=== PATIENT | female | born 1990 | race Caucasian/White ===

== ENCOUNTER 2023-06-05 08:05 | Outpatient (REF) | payer OTHER, SELFPAY ==
--- NOTE | ~2023-06-05 | US_ITS ---
EXAMINATION: MM DIAGNOSTIC DIGITAL BREAST TOMOSYNTHESIS, BILATERAL US BREAST LIMITED, RIGHT MAMMOGRAPHY: CLINICAL INFORMATION: Right breast pain and palpable focus as per 9:00 axis right breast. As per patient 11:00 axis right breast. COMPARISON: Mammography: No prior. TECHNIQUE: Digital breast tomosynthesis is performed in both the craniocaudal and mediolateral oblique views along with computer-aided detection (CAD). Synthesized 2D images are generated from the tomosynthesis. FINDINGS: There are scattered areas of fibroglandular density (ACR BI-RADS breast composition Category b). There are no suspicious masses, suspicious grouped calcifications, or areas of architectural distortion in either breast. The parenchymal pattern is stable from prior exams. Biopsy clip noted right axilla. Palpable/painful focus 9:00 and 11:00 axes right breast show no mammographic abnormalities or correlates. ULTRASOUND: CLINICAL INFORMATION: Right breast pain and palpable focus as per 9:00 axis right breast. As per patient 11:00 axis right breast. COMPARISON: None relevant. TECHNIQUE: Targeted sonographic evaluation was performed using a high frequency linear transducer. Attention was focused to the 8:00 to the 12:00 axis of the right breast. Selected archived documentation. FINDINGS: RIGHT BREAST: There is a mixture of fatty and fibroglandular tissue. No suspicious mass is seen. There is no pathologic acoustic shadowing. There is no sonographic abnormality in the region of palpable concern/pain. US/US breast RT limited mamm only IMPRESSION: There are no findings suspicious for malignancy in either breast. Right breast shows no sonographic or mammographic abnormality in the region of purported pain and palpable concern. Recommend clinical management. Otherwise, recommend resuming routine annual screening mammography at age 38. OVERALL ASSESSMENT: Mammography: BI-RADS 1 - Negative Ultrasound: BI-RADS 1 - Negative RECOMMENDATION: 1 year F/U Results were provided to the patient at time of visit by the technologist. This patient's information was entered into a reminder system with a target due date for their next mammogram.
== END 2023-06-05 08:06 | disposition home or self-care (01) ==
LOC: HO.MAMMO 08:05
PROVIDERS: PCP Family Medicine; Visit Provider Family Medicine
DX: N64.4 Mastodynia (principal)
CPT/HCPCS: 76642; 77062; 77066

== ENCOUNTER → 2023-06-05 08:10 | Outpatient (BNV) | payer OTHER, SELFPAY | PROVIDERS: PCP Family Medicine; Visit Provider Radiology Diagnostic Radiology | DX: N64.4 Mastodynia (principal) | CPT/HCPCS: 76642; 77062; 77066 ==

== ENCOUNTER 2023-08-06 17:33 | Outpatient (REF) | payer OTHER, SELFPAY | END 2023-08-06 17:34 | disposition home or self-care (01) | LOC: HO.HHCLNP 17:33 | PROVIDERS: Visit Provider Family Medicine | DX: L02.411 Cutaneous abscess of right axilla (principal) | CPT/HCPCS: 87070; 87205 ==

== ENCOUNTER 2023-10-01 17:21 | Outpatient (REF) | payer OTHER, SELFPAY ==
[2023-10-03 19:48] LABS: C. trachomatis RNA TMA NOT DETECTED (NOT DETECTED); Candida glabrata RNA NOT DETECTED (NOT DETECTED); Candida species RNA NOT DETECTED (NOT DETECTED); N. gonorrhoeae RNA TMA NOT DETECTED (NOT DETECTED); Trichomonas vaginalis RNA NOT DETECTED (NOT DETECTED)
== END 2023-10-01 17:22 | disposition home or self-care (01) ==
LOC: HO.HHCLNP 17:21
PROVIDERS: Visit Provider Family Medicine
DX: R30.0 Dysuria (principal)
CPT/HCPCS: 36415; 81513; 87086; 87481; 87491; 87591; 87661

== ENCOUNTER 2023-10-07 18:42 | Outpatient (REF) | payer OTHER, SELFPAY ==
[2023-10-09 12:12] LABS: C. trachomatis RNA TMA NOT DETECTED (NOT DETECTED); Candida glabrata RNA NOT DETECTED (NOT DETECTED); Candida species RNA NOT DETECTED (NOT DETECTED); N. gonorrhoeae RNA TMA NOT DETECTED (NOT DETECTED); Trichomonas vaginalis RNA NOT DETECTED (NOT DETECTED)
== END 2023-10-07 18:43 | disposition home or self-care (01) ==
LOC: HO.HHCLNP 18:42
PROVIDERS: Visit Provider Emergency Medicine
DX: R39.9 Unspecified symptoms and signs involving the genitourinary system (principal)
CPT/HCPCS: 36415; 81513; 87481; 87491; 87591; 87661

== ENCOUNTER 2025-06-06 17:25 | Outpatient (REF) | payer OTHER, SELFPAY ==
--- OUTSIDE RECORDS SUMMARY | 2025-06-06 11:45 | XMS_ITS | Encounter Summary ---
Author Organization [employer] Address [address] [facility] 7 [place] [address] Care Team Providers Care Jig Filler Name Role Phone Zaira Craft DO Primary Care Provider + [phone] Encounter Details Date Type Department Care Team (Latest Contact Info) Description 06/06/2025 11:45 AM EST Office Visit [facility] [address] [place], [place] [phone] Zaira Craft DO [address], [place] [phone] UTI symptoms; Encounter for surveillance of contraceptive pills Social History Tobacco Use Types Packs/Day Years Used Date Smoking Tobacco: Never Smokeless Tobacco: Never Alcohol Use Standard Drinks/Week Comments Never 0 (1 standard drink = 0.6 oz pur e alcohol) Depression Answer Date Recorded Patient Health Questionnaire-9 Score 0 06/02/2023 Patient Health Questionnaire-9 Score 0 06/02/2023 Last PHQ-9: Questionnaire Data Not on file 1 08/03/2022 Housing Stability Answer Date Recorded What is your housing situation today? I have nuvia huitron 06/06/[address] you li ve. Do you have problems with any of the following? None of the above 06/06/2025 Food Insecurity Answer Date Recorded Within the past 12 months, y ou worried that your food would run out before you got money to buy more: Never True 06/06/2025 Within the past 12 months,th e food you bought just didn't last and you didn't have enough money to get more: Never True 02/2025 Transportation Answer Date Recorded In the past 12 months, has l ack of transportation kept you from medical appts, meetings, work or from getting things needed for daily living? No 06/06/2025 Utilities Answer Date Recorded In the past 12 months, has t he electric, gas, oil or water company threatened to shut off services in your home? No 06/06/2025 Depression Answer Date Recorded Patient Health Questionnaire-2 Score 0 06/06/2025 Internet Access Answer Date Recorded Internet Access Q1 Yes 06/06/2025 Internet Access Q2 Not on file 06/06/2025 Comments No Sex and Gender Information Value Date Recorded Sex Assigned at Female 04/28/2022 10:20 AM EDT Legal Sex Female 10:20 AM EDT Gender Identity Female 04/28/2022 10:20 AM EDT Sexual Orientation Straight 04/28/2022 10 :20 AM EDT documented as of this encounter Last Filed Vital Signs Vital Sign Reading Time Taken Comments Blood Pressure 124/78 06/06/2025 12:11 PM EST Pulse 94 06/06/2025 12:11 PM EST Temperature 36.9 C (98.4 F) 06/06/2025 12:11 PM EST Respiratory Rate 20 06/06/2025 12:11 PM EST Oxygen Saturation 98% 06/06/2025 12:11 PM EST Inhaled Oxygen Concentration - - Weight 80.3 kg (177 lb) 06/06/2025 12:11 PM EST Height 157.5 cm (5' 2 ) 06/06/2025 12:11 PM EST Body Mass Index 32.37 06/06/2025 12:11 PM EST documented in this encounter Functional Status * Over the past 2 weeks, how often have you been bothered by any of the following problems? Question Answer Date of Assessment Author Patient Health Questionnaire -2 Score 0 06/06/2025 1:46 PM EST Rebecca Barrera MA * Little interest or pleasure in doing things Answer Date of Assessment Author Not at all 06/06/2025 1:46 PM EST Axel Barrera MA * Feeling down, depressed, or hopeless Answer Date of Assessment Author Not at all 06/06/2025 1:46 PM EST Axel Barrera MA * Trouble falling or staying asleep, or sleeping too much Answer Date of Assessment Author Not at all 06/06/2025 1:46 PM EST Axel Barrera MA * Feeling tired or having little energy Answer Date of Assessment Author Several days 06/06/2025 1:46 PM EST Axel Barrera MA documented as of this encounter Plan of Treatment Scheduled Orders Name Type Priority Associated Diagnoses Orde r Schedule Culture, Urine, Routine Microbiology Routine UTI symptoms Expected: 06/06/2025 (Approximate), Expires: 06/06/2026 documented as of this encounter Procedures Procedure Name Priority Date/Time Associated Diagnosis Comments POCT URINALYSIS DIPSTICK Routine 06/06/2025 12:48 PM EST UTI symptoms documented in this encounter Results * (ABNORMAL) POCT Urinalysis (06/06/2025 12:48 PM EST) Color, UA Yellow Clarity, UA Clear Glucose, UA Negative Bilirubin, UA Negative Ketones, UA Negative Spec Grav, UA 1.010 Blood, UA Positive(A) Negative, None Detected Comment:Trace-lysed pH, UA 5.5 Protein, UA Negative Urobilinogen, UA 0.2 Leukocytes, UA Negative Negative, Rare, Trace, 1+ (17), 2+ (35), 3+ (70), Trace (15) Nitrite, UA Positive(A) Negative, None Detected QC Media Lot # [id number] Lot# Expiration Date , Urine (Urine, Random) 06/06/2025 12:48 PM EST Zaira Craft DO POINT OF CARE TEST ENTER/NONI T ORDERABLES Final Result documented in this encounter Visit Diagnoses Diagnosis UTI symptoms Encounter for surveillance of contraceptive pills documented in this encounter Additional Health Concerns Assessment Noted Time PHQ-9 Depression Total Score: 0 06/02/20 23 9:19 AM EST documented as of this encounter Care Teams Jig Filler Relationship Specialty Start Date End Date Zaira Craft DO [address] [place] [id number] PCP - General Family Medicine 06/29/18 documented as of this encounter
--- OUTSIDE RECORDS SUMMARY | 2025-06-06 23:04 | XMS_ITS | Clinical Summary ---
Author Organization [facility] Address [address] [place] [phone] Phone Care Team Providers Care Junior Accountant Bookkeeper Name Role Phone LuanaZaira Primary Care Provider Allergies No known active allergies Medications ondansetron (ZOFRAN-ODT) 4 MG disintegrating tablet Take 1 tablet (4 mg total) by mouth every 8 (eight) hours as needed for nausea. 15 tablet Active Active Problems No known active problems Encounters Date Type Department Care Team Description 05/30/2025 1:47 AM EST - 05/30/2025 5:08 AM EST Emergency [facility] [address] [place] [address] Jose Alberto Burton, DO Discharge Disposition: Home or Self Care 05/30/2025 Procedure Pass [facility], Ct Scan - [facility] [address] [place] [address] from Last 3 Months Social History Tobacco Use Types Packs/Day Years Used Date Smoking Tobacco: Never Assessed Education Answer Date Recorded Are you interested in more education? Not on raul e 10/18/2023 Are you concerned about learning? Not on file 10/18/2023 No 10/18/2023 No 10/18/2023 Digital Access Answer Date Recorded No 10/18/2023 No 10/18/2023 Reliable internet access at home? Not on file 10/18/2023 Device with a working camera? Not on file Intimate Partner Violence Answer Date R ecorded Are you denied basic needs s uch as food, clothing, or medical care? No 05/30/2025 In the past 12 months have y ou been in a relationship with a person who hurts, threatens, or tries to control you? No 05/30/2025 Are you denied basic needs s uch as food, clothing, or medical care? No 05/30/2025 In the past 12 months have y ou been in a relationship with a person who hurts, threatens, or tries to control you? No 05/30/2025 Comments Unknown Sex and Gender Information Value Date Recorded Sex Assigned at Female 05/30/2025 1:54 AM EST Legal Sex Female 9:08 PM EDT Gender Identity Female 05/30/2025 1:54 AM EST Sexual Orientation Straight 05/30/2025 1: 54 AM EST Last Filed Vital Signs Vital Sign Reading Time Taken Comments Blood Pressure 111/64 05/30/2025 4:45 AM EST Pulse 80 05/30/2025 4:45 AM EST Temperature 36.7 C (98 F) 05/30/2025 4:45 AM EST Respiratory Rate 18 05/30/2025 4:45 AM EST Oxygen Saturation 100% 05/30/2025 4:45 AM EST Inhaled Oxygen Concentration - - Weight 83.9 kg (185 lb) 05/30/2025 12:41 AM EST Height 157.5 cm (5' 2 ) 05/30/2025 12:41 AM EST Body Mass Index 33.84 05/30/2025 12:41 AM EST Plan of Treatment Health Maintenance Due Date Last Done Comments DEPRESSION SCREENING 2000 SMOKING Hx and SMOKELESS TOBACCO SCREENING 2001 HEPATITIS C SCREENING 2006 HIV ONE-TIME SCREENING (18-65 YEARS) 2006 PAP SMEAR 2009 SCREENING FOR DIABETES 2023 INFLUENZA VACCINE (#1) 2025 , 03/31/2018, 03/07/2014, Additional history exists COVID-19 VACCINE ( season) 2025 08/13/2021, 11/28/2020, 11/02/2020 Adult Td,Tdap Booster 08/05/2029 08/05/2019 , 10/29/2015, 05/07/2011, Additional history exists MENINGOCOCCAL VACCINES (ACWY) Completed 04/20/2006 HEPATITIS A VACCINES Aged Out No long er eligible based on patient's age to complete this topic HIB VACCINES Aged Out No longer eligi ble based on patient's age to complete this topic MENINGOCOCCAL VACCINES (B) Aged Out N o longer eligible based on patient's age to complete this topic PNEUMOCOCCAL VACCINES (0-49 years) Aged Out No longer eligible based on patient's age to complete this topic Medical Devices Not on file Procedures Procedure Name Priority Date/Time Associated Diagnosis Comments CT ABDOMEN/PELVIS WITH CONTRAST Routine 05/30/2025 2:51 AM EST CBC AND DIFFERENTIAL STAT 05/30/2025 1:16 AM EST LIPASE STAT 05/30/2025 1:16 AM EST LFTS (HEPATIC PANEL) STAT 05/30/2025 1:16 AM EST HCG, SERUM QUALITATIVE STAT 05/30/2025 1:16 AM EST BASIC METABOLIC PANEL (BMP) STAT 05/30/2025 1:16 AM EST CBC AND DIFFERENTIAL STAT 05/30/2025 1:16 AM EST from Last 3 Months Results * CT ABDOMEN/PELVIS WITH CONTRAST (05/30/2025 2:51 AM EST) MGB IMG FOREIGN BROADCAST SPECIALIST COMMENT Possible acute interstitial pancreatitis. No organized fluid collection. Possible cystitis. [facility] Anatomical Region Laterality Modality Abdomen, Pelvis Computed Tomogra phy 05/30/2025 4:09 AM EST Impressions 05/30/2025 4:41 AM EST 1. Mild haziness about the head of the pancreas and about the celiac axis, may represent acute interstitial pancreatitis.No organized fluid collection. 2. Mild circumferential wall thickening of the urinary bladder, may represent cystitis in the appropriate clinical setting. A clinically significant result was initiated on 05/30/2025 4:41 AM, Message ID [id number]. ATTESTATION: I, Dr. Gregory Shell as teaching physician, have reviewed the images for this case and if necessary edited the report originally created by Luis Carlos Waldrop MD. Narrative 05/30/2025 4:[address] ABDOMEN/PELVIS WITH CONTRAST Referring clinician's provided indication for this examination in Epic: * Abdominal pain, acute, nonlocalized TECHNIQUE: Multidetector-row CT of the abdomen and pelvis was performed after administration of intravenous contrast using tailored dose modulation techniques. Images were reconstructed in the axial, coronal, and sagittal planes. COMPARISON: None available. FINDINGS: Lower Chest: No consolidation or pleural effusions. Liver: No focal lesions. Biliary: Noninflamed gallbladder. No biliary ductal dilatation. Spleen: No splenomegaly or focal lesions. Pancreas: Mild haziness about the head of the pancreas and about the celiac axis. No mass or ductal dilatation. Adrenal Glands: No nodules. Kidneys/Ureters: No stones or hydronephrosis. Bowel: No bowel wall thickening or dilatation. Normal appendix. Peritoneum/Retroperitoneum: No pneumoperitoneum or free fluid. Lymph Nodes: No lymphadenopathy. Pelvic Organs/Bladder: Mild circumferential wall thickening of the urinary bladder. Vessels: No abdominal aortic aneurysm. Bones/Soft Tissues: No significant abnormality. Procedure Note Gregory Plascencia MD - 05/30/2025 CT ABDOMEN/PELVIS WITH CONTRAST Referring clinician's provided indication for this examination in Epic: *Abdominal pain, acute, nonlocalized TECHNIQUE: Multidetector-row CT of the abdomen and pelvis was performedafter administration of intravenous contrast using tailored dosemodulation techniques. Images were reconstructed in the axial, coronal,and sagittal planes. COMPARISON: None available. FINDINGS: Lower Chest: No consolidation or pleural effusions. Liver: No focal lesions. Biliary: Noninflamed gallbladder. No biliary ductal dilatation. Spleen: No splenomegaly or focal lesions. Pancreas: Mild haziness about the head of the pancreas and about theceliac axis. No mass or ductal dilatation. Adrenal Glands: No nodules. Kidneys/Ureters: No stones or hydronephrosis. Bowel: No bowel wall thickening or dilatation. Normal appendix. Peritoneum/Retroperitoneum: No pneumoperitoneum or free fluid. Lymph Nodes: No lymphadenopathy. Pelvic Organs/Bladder: Mild circumferential wall thickening of the urinarybladder. Vessels: No abdominal aortic aneurysm. Bones/Soft Tissues: No significant abnormality. IMPRESSION: 1. Mild haziness about the head of the pancreas and about the celiacaxis, may represent acute interstitial pancreatitis.No organized fluidcollection. 2. Mild circumferential wall thickening of the urinary bladder, mayrepresent cystitis in the appropriate clinical setting. A clinically significant result was initiated on 05/30/2025 4:41 AM,Message ID [id number]. ATTESTATION: I, Dr. Gregory Shell as teaching physician, havereviewed the images for this case and if necessary edited the reportoriginally created by Luis Carlos Waldrop MD. us Jose Alberto Burton DO IMG CT ABD/PELVIS Final Resul t * Human Chorionic Gonadotropin (HCG), Qualitative, Blood (05/30/2025 1:16 AM EST) Pathologist [facility] hCG Qualitative Negative Negative 1:49 AM [facility] Blood (Blood) Venipuncture / Unknown 05/30/2025 1:16 AM EST 05/30/2025 1:28 AM EST us Jose Alberto Burton DO LAB BLOOD BKR ORDERABLES Antonia l Result [address] [address] * CBC and Differential (05/30/2025 1:16 AM EST) WBC 10.17 4.00 - 11.00 K/uL 05/30/2025 1:31 AM EST [facility] RBC 4.39 4.00 - 5.20 M/uL 05/30/2025 1:31 AM [facility] Hemoglobin 12.0 12.0 - 16.0 g/dL 05/30/2025 1:31 AM [facility] Hematocrit 37.5 36.0 - 46.0 % 05/30/2025 1:31 AM [facility] MCV 85.4 80.0 - 100.0 fL 05/30/2025 1:31 AM [facility] MCH 27.3 27.0 - 31.0 pg 05/30/2025 1:31 AM [facility] MCHC 32.0 32.0 - 36.0 g/dL 05/30/2025 1:31 AM [facility] MPV 10.0 8.4 - 12.0 fL 05/30/2025 1:31 AM [facility] RDW-CV 13.1 11.5 - 14.5 % 05/30/2025 1:31 AM [facility] PLT 305 150 - 450 K/uL 05/30/2025 1:31 AM [facility] Neutrophils 57.7 % 05/30/2025 1:31 AM [facility] Lymphocytes 34.9 % 05/30/2025 1:31 AM [facility] Monocytes 5.3 % 05/30/2025 1:31 AM [facility] Eosinophils 1.6 % 05/30/2025 1:31 AM [facility] Basophils 0.2 % 05/30/2025 1:31 AM [facility] Imm Grans 0.3 % 05/30/2025 1:31 AM [facility] NRBC 0.0 <=0.0 /100 WBCs 05/30/2025 1:31 AM [facility] Absolute Neutrophils 5.87 1.92 - 7.60 K/uL 05/30/2025 1:31 AM [facility] Absolute Lymphocytes 3.55 0.72 - 4.10 K/uL 05/30/2025 1:31 AM [facility] Absolute Monocytes 0.54 0.16 - 1.10 K/uL 05/30/2025 1:31 AM [facility] Absolute Eosinophils 0.16 0.00 - 0.50 K/uL 05/30/2025 1:31 AM [facility] Absolute Basophils 0.02 0.00 - 0.15 K/uL 05/30/2025 1:31 AM [facility] Absolute Imm Grans 0.03 0.00 - 0.09 K/uL 05/30/2025 1:31 AM [facility] Absolute NRBC 0.00 <=0.00 K cells/uL 05/30/2025 1:31 AM [facility] Absolute Neutrophils 5.87 1.92 - 7.60 K/uL 05/30/2025 1:31 AM [facility] Comment:Automated cell count . Manual ANC may differ if performed. Diff Type Auto 05/30/2025 1:31 AM [facility] Blood (Blood) Venipuncture / Unknown 05/30/2025 1:16 AM EST 05/30/2025 1:28 AM EST us Jose Alberto Burton DO LAB BLOOD BKR ORDERABLES Antonia l Result [address] [address] * Hepatic Panel (LFTs) (05/30/2025 1:16 AM EST) AST 12 <33 U/L 05/30/2025 1:55 AM [facility] ALT 12 <34 U/L 05/30/2025 1:55 AM [facility] Alkaline Phosphatase 63 40 - 130 U/L 05/30/2025 1:55 AM [facility] Bilirubin, Total <0.2 0.0 - 1.2 mg/dL 05/30/2025 1:55 AM [facility] Bilirubin, Direct 0.1 0.0 - 0.3 mg/dL 05/30/2025 1:55 AM [facility] Total Protein 7.8 6.4 - 8.3 g/dL 05/30/2025 1:55 AM [facility] Albumin 4.2 3.5 - 5.2 g/dL 05/30/2025 1:55 AM [facility] Globulin 3.6 1.9 - 4.1 g/dL 05/30/2025 1:55 AM [facility] Blood (Blood) Venipuncture / Unknown 05/30/2025 1:16 AM EST 05/30/2025 1:28 AM EST us Jose Alberto Burton DO LAB BLOOD BKR ORDERABLES Antonia l Result Performing Organization Address City/[facility]/ZIP Co de Phone Number [address] [address] * (ABNORMAL) Lipase (05/30/2025 1:16 AM EST) Lipase 106(H) 13 - 60 U/L 05/30/2025 1:55 AM [facility] Blood (Blood) Venipuncture / Unknown 05/30/2025 1:16 AM EST 05/30/2025 1:28 AM EST us Jose Alberto Mckeon [employer] LAB BLOOD BKR ORDERABLES Antonia l Result Performing Organization Address [facility]/ZIP Co de Phone Number [address] [address] * (ABNORMAL) Basic Metabolic Panel (BMP) (05/30/2025 1:16 AM EST) Pathologist [facility] Sodium 138 136 - 145 mmol/L 05/30/2025 1:55 AM [facility] Potassium 4.0 3.4 - 5.1 mmol/L 05/30/2025 1:55 AM [facility] Chloride 105 98 - 107 mmol/L 05/30/2025 1:55 AM [facility] CO2 21 20 - 31 mmol/L 05/30/2025 1:55 AM [facility] Anion Gap 12 3 - 17 mmol/L 05/30/2025 1:55 AM [facility] BUN 13 6 - 23 mg/dL 05/30/2025 1:55 AM [facility] Creatinine 0.70 0.50 - 1.00 mg/dL 05/30/2025 1:55 AM [facility] eGFR 114 >59 mL/min/1.7 3m2 05/30/2025 1:55 AM [facility] Comment:Estimated glomerular filtration rate calculated using the CKD-EPI refit equation. Glucose 126(H) 70 - 99 mg/dL 05/30/2025 1:55 AM [facility] Calcium 9.1 8.5 - 10.5 mg/dL 05/30/2025 1:55 AM EST [facility] Blood (Blood) Venipuncture / Unknown 05/30/2025 1:16 AM EST 05/30/2025 1:28 AM EST us Jose Alberto Mike Burton DO LAB BLOOD BKR ORDERABLES Antonia l Result [address] [address] from Last 3 Months Insurance NON NSPG PCP [address] [employer] [place] [address] [place] [address] NON NSPG PCP [place] [employer] NON NSPG PCP [employer] NON NSPG PCP S[employer] NON NSPG PCP S[employer] NON NSPG PCP [employer] Care Teams Junior Accountant Bookkeeper Relationship Specialty Start Date End Date Zaira Craft DO [address] [place] [id number] PCP - General 10/18/23 Additional Source Comments The information contained in this document represents components of the legal health record. It is not the complete legal health record.[facility]
--- OUTSIDE RECORDS SUMMARY | 2025-06-06 23:04 | XMS_ITS | Encounter Summary ---
Author Organization [employer] Address [address] [facility] [address] [place] [address] Care Team Providers Care Bridge Builder Name Role Phone RominaZaira kendall Primary Care Provider + [phone] Encounter Details Date Type Department Care Team (Latest Contact Info) Description 06/06/2025 Travel Social History Tobacco Use Types Packs/Day Years [...] AM EDT documented as of this encounter Functional Status * Over the past 2 weeks, how often have you been bothered by any of the following problems? Question Answer Date of Assessment Author Patient Health Questionnaire -2 Score 0 06/06/2025 1:46 PM EST Rbeecca Barrera MA * Little interest or pleasure in doing things Answer Date of Assessment Author Not at all 06/06/2025 1:46 PM EST Axel Barrera MA * Feeling down, depressed, or hopeless Answer Date of Assessment Author Not at all 06/06/2025 1:46 PM Axel Osullivan MA * Trouble falling or staying asleep, or sleeping too much Answer Date of Assessment Author Not at all 06/06/2025 1:46 PM EST Axel Barrera MA * Feeling tired or having little energy Answer Date of Assessment Author Several days 06/06/2025 1:46 PM Axel Osullivan MA documented as of this encounter Plan of Treatment Not on file documented as of this encounter Visit Diagnoses Not on filedocumented in this encounter Additional Health Concerns Assessment Noted Time PHQ-9 Depression Total Score: 0 06/02/20 23 9:19 AM EST documented as of this encounter Care Teams Bridge Builder Relationship Specialty Start Date End Date Zaira Craft DO [address] [place] [address] PCP - General Family Medicine 06/29/18 documented as of this encounter
--- OUTSIDE RECORDS SUMMARY | 2025-06-06 23:04 | XMS_ITS | Encounter Summary ---
Author Organization [facility] Address [address] [facility] 7 [place] [address] Care Team Providers Care Javascript Front End Developer Name Role Phone Zaira Craft DO Primary Care Provider + [phone] Encounter Details Date Type Department Care Team (Late st Contact Info) Description 09/30/2022 Orders Only [facility] PEDS [address] [place] [address] Zaira Woods LPN Social History Tobacco Use Types Packs/Day Years Used Date Smoking Tobacco: Never Smokeless Tobacco: Never Comments Unknown Sex and Gender Information Value Date Recorded Sex Assigned at Female 04/28/2022 10:20 AM EDT Legal Sex Female 10:20 AM EDT Gender Identity Female 04/28/2022 10:20 AM EDT Sexual Orientation Straight 04/28/2022 10 :20 AM EDT COVID-19 Exposure Response Date Recorded In the last 10 days, have yo u been in contact with someone who was confirmed or suspected to have Coronavirus/COVID-19? No / Unsure 09/08/2022 9:03 AM EDT documented as of this encounter Plan of Treatment Not on file documented as of this encounter Visit Diagnoses Not on filedocumented in this encounter Care Teams Javascript Front End Developer Relationship Specialty Start Date End Date Zaira Craft DO [address] [place] [address] PCP - General Family Medicine 06/29/18 documented as of this encounter
--- OUTSIDE RECORDS SUMMARY | 2025-06-06 23:04 | XMS_ITS | Encounter Summary ---
Author Organization [employer] Address 75 [facility] 7 [place] [address] Care Team Providers Care Office Auditor Name Role Phone Zaira Craft DO Primary Care Provider + [phone] Reason for Visit * Reason Onset Date Comments chart prep 06/05/2025 Encounter Details Date Type Department Care Team ([facility] Contact Info) Description 06/05/2025 Telephone [facility] [address] [place], [place] [phone] Zaira Craft DO [address] [place], [place] [phone] chart prep Social History Tobacco Use Types Packs/Day Years [...] Access Q2 Not on file 06/06/2025 Comments Unknown Sex and Gender Information Value Date Recorded Sex Assigned at Female 04/28/2022 10:20 AM EDT Legal Sex Female 10:20 AM EDT Gender Identity Female 04/28/2022 10:20 AM EDT Sexual Orientation Straight 04/28/2022 10 :20 AM EDT documented as of this encounter Miscellaneous Notes * Telephone Encounter - Lashae Wahl MA - 06/05/2025 9:56 AM EST Chart Prep Labs: done Images: done Referrals: not applicable Vaccines due: Covid and Flu Screenings: not applicable Overdue care gaps: SBIRT, SDOH, PHQ-9, FLORENTIN-7, and Oral health screening documented in this encounter Plan of Treatment Not on file documented as of this encounter Visit Diagnoses Not on filedocumented in this encounter Additional Health Concerns Assessment Noted Time PHQ-9 Depression Total Score: 0 06/02/20 23 9:19 AM EST documented as of this encounter Care Teams Office Auditor Relationship Specialty Start Date End Date Zaira Craft DO [address] [place] [address] PCP - General Family Medicine 06/29/18 documented as of this encounter
--- OUTSIDE RECORDS SUMMARY | 2025-06-06 23:04 | XMS_ITS | Encounter Summary ---
Author Organization [employer] Address 75 [facility] 7 [place] [address] Care Team Providers Care Director Style Name Role Phone Zaira Craft DO Primary Care Provider + [phone] Encounter Details Date Type Department Care Team (Late st Contact Info) Description 10/16/2022 Orders Only [facility] CH[facility] MED & PEDS [address] [place], [place] [phone] Zaira Woods LPN Social History Tobacco Use [...] on filedocumented in this encounter Care Teams Director Style Relationship Specialty Start Date End Date Zaira Craft DO [address] [place] [phone] PCP - General Family Medicine 06/29/18 documented as of this encounter
--- OUTSIDE RECORDS SUMMARY | 2025-06-06 23:04 | XMS_ITS | Encounter Summary ---
Author Organization [facility] Address 75 [facility] 7 [place] [address] Care Team Providers Care Major Account Manager Name Role Phone Zaira Craft DO Primary Care Provider + [phone] Encounter Details Date Type Department Care Team (Late st Contact Info) Description 07/01/2022 Orders Only [facility] MED & PEDS [address] [place] [address] Zaira Woods LPN Social History Tobacco Use Types Packs/Day Years Used Date Smoking Tobacco: Never Assessed Comments Unknown Sex and Gender Information Value [...] on filedocumented in this encounter Care Teams Major Account Manager Relationship Specialty Start Date End Date Zaira Craft DO [address] [place] [address] PCP - General Family Medicine 06/29/18 documented as of this encounter
--- OUTSIDE RECORDS SUMMARY | 2025-06-06 23:04 | XMS_ITS | Clinical Summary ---
Author Organization [employer] Address 75 [facility] 7t [place] [address] Care Team Providers Care Garden Center Manager Name Role Phone Luana Zaira PHILLIPS Primary Care Provider + [phone] Allergies Active Allergy Reactions Criticality Noted Date Comments Etonogestrel 09/30/2017 Medications Diclofenac Sodium 1 % gel Apply 2 g topically if needed in the morning, at noon, in the evening, and at bedtime (pain). 150 g 1 06/02/20 23 Active PARoxetine (Paxil) 10 MG tablet TAKE 1 TABLET BY MOUTH EVERY MORNING 90 tablet 1 04/27/20 25 Active levothyroxine (Synthroid, Levoxyl) 50 MCG tablet TAKE 1 TABLET BY MOUTH DAILY 90 tablet 05/30/20 25 Active sulfamethoxazole -trimethoprim (Bactrim DS) 800-160 MG tablet Take 1 tablet by mouth 2 times daily for 3 days. 6 tablet 5 6:01 PM EST 06/06/20 25 025 Active levonorgestrel-e thinyl estradiol (Aviane, Alesse, Lessina) 0.1-20 MG-MCG tabletIndication s:Encounter for surveillance of contraceptive pills Take 1 tablet by mouth Once per day. 84 tablet 1 5 6:01 PM EST 06/06/20 25 Active levothyroxine (Synthroid, Levoxyl) 50 MCG tablet TAKE 1 TABLET BY MOUTH EVERY DAY 90 tablet 02/04/20 25 025 Discontinued levonorgestrel-e thinyl estradiol (Aviane, Alesse, Lessina) 0.1-20 MG-MCG tabletIndication s:Encounter for surveillance of contraceptive pills TAKE 1 TABLET BY MOUTH EVERY DAY 84 tablet 1 03/03/20 25 025 Discontinued(R eorder (will not trigger notification to Pharmacy)) Active Problems Problem Noted Date Diagnosed Date BMI 34.0-34.9,adult 06/02/2023 Hypothyroidism 09/08/2022 Vitamin D deficiency 03/31/2018 Anxiety 02/11/2017 Resolved Problems Problem Noted Date Diagnosed Date Resolved Date H/O delivery, currently 09/08/2022 09/08/2022 care, subsequent 09/08/2022 09/08/2022 History of PROM in p revious , currently , unspecified trimester 09/08/2022 09/08/2022 Anemia of 09/08/2022 09/09/19 23 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 09/08/2022 High risk due to h istory of labor 07/25/2022 07/26/2022 Swelling of lower extremity 07/25/2022 09/08/2022 Encounters Date Type Department Care Team Description 06/06/2025 11:45 AM EST Office Visit [facility] [address] [place] [phone] Zaira Craft DO UTI symptoms; Encounter for surveillance of contraceptive pills 06/06/2025 Travel 06/05/2025 Telephone [facility] [address] [place] [phone] Zaira Craft DO chart prep 06/02/2025 Travel 05/30/2025 Telephone [facility] [address] [place] [address] Zaira Craft DO ER Follow-up 05/29/2025 Refill [facility] [address] [place] [address] Josefina Hartley MD 04/27/2025 Refill [facility] [address] [place] [address] Zaira Craft DO from Last 3 Months Immunizations Immunization Administration Dates Next Due DTP 01/30/1998, 0,03/28/1989,10/05,1988 HPV, Quadrivalent 04/11/2010,09/24/2009,07/26/19 10 Hep B, Adolescent or Pediatric 03/03/2001,2000,08/18/1999 Influenza injectable quadriv alent IIV4 with preservative 03/31/2018 Influenza injectable quadriv alent preservative free 08/05/2019 Influenza, IIV3, injectable 07/17/2015, 4,04/11/2010 Influenza, Split (incl. [place] antigen) 03/08/2013 MMR 07/26/1996,11/24/1995,01/26/1989 Meningococcal MCV4P ACYW-135 04/20/2006 OPV, Trivalent 01/30/1998, 6,11/23/1989,03/28,1988,1988 TD (adult), 2 Lf tetanus tox oid, preservative free, adsorbed 08/05/2019 Tdap 10/29/2015,05/07/2011,07/26/2009 Social History Tobacco Use Types Packs/Day Years Used Date Smoking Tobacco: Never Smokeless Tobacco: Never Tobacco Cessation:Counseling Given: Not Answered Alcohol Use Standard Drinks/Week Comments Never 0 [...] Orientation Straight 04/28/2022 10 :20 AM EDT Last Filed Vital Signs Vital Sign Reading [...] Mass Index 32.37 06/06/2025 12:11 PM EST Plan of Treatment Health Maintenance Due Date Last Done Comments Family Planning (PISQ) 2003 Dental X-Ray: Bitewings 08/11/2019 08/10/19 19, 05/04/2015, 03/22/2014, Additional history exists Dental Oral Exam 11/10/2019 05/11/2019, 05/2019, 08/21/2015, Additional history exists Dental Prophylaxis 11/10/2019 05/11/2019, 0 10/20/2018, 11/06/2015, Additional history exists Dental X-Ray: Full Mouth 08/11/2021 08/10/2018, 05/30 COVID-19 Vaccine ( season) 2025 08/13/2021, 11/28/2020, 11/02/2020 Influenza Vaccine (#1) 2025 0, 03/31/2018, 07/17/2015, Additional history exists Alcohol/Substance Use Screening 06/06/2026 06/06/2025 Depression Screening 06/06/2026 06/06/2025, 06/02/20 23 Disability Screening 06/06/2026 06/06/2025 SDOH Screening 06/06/2026 06/06/2025 Tobacco Screening 06/06/2026 06/06/2025 Cervical Cancer Screening 01/10/2027 HPV/Cotest 01/10/2027 01/10/2022 Pap Smear 01/10/2027 01/10/2022 DTaP/Tdap/Td Vaccines (10 - Td or Tdap) 08/05/2029 08/05/2019, 10/29/2015, 05/07/2011, Additional history exists Zoster Vaccines (1 of 2) 2038 RSV Patients and Patients Aged 60 years or older (1 - 1-dose 75+ series) 2063 IPV Vaccines Completed 01/30/1998, 10/28, 11/23/1989, Additional history exists Hepatitis B Vaccines Completed 03/03/2001, 10/14/2000, 08/18/1999 Meningococcal Vaccine Completed 04/20/2006 HPV Vaccines Completed 04/11/2010, 08/28, 07/26/2009 HIV Screening Completed 09/08/2022, 08/31/2019 Hepatitis C Screening Completed 09/08/2022, 020 HIB Vaccines Aged Out No longer eligi ble based on patient's age to complete this topic Hepatitis A Vaccines Aged Out No long er eligible based on patient's age to complete this topic Meningococcal B Vaccine Aged Out No l onger eligible based on patient's age to complete this topic Pneumococcal Vaccine: Pediatrics (0 to 5 Years) and At-Risk Patients (6 to 49) Years Aged Out No longer eligible based on patient's age to complete this topic RSV under 20 months Aged Out No longe r eligible based on patient's age to complete this topic Rotavirus Vaccines Aged Out No longer eligible based on patient's age to complete this topic Procedures Procedure Name Priority Date/Time Associated Diagnosis Comments POCT URINALYSIS DIPSTICK Routine 06/06/2025 12:48 PM EST UTI symptoms HEPATITIS C AB W/RFL RNA, PCR W/RFL GENOTYPE,LIPA Routine 09/08/2022 10:44 AM EDT Encounter for routine adult health examination without abnormal findings HIV 1/2 ANTIGEN/ANTIBODY, FOURTH GENERATION W/RFL Routine 09/08/2022 10:44 AM EDT Encounter for routine adult health examination without abnormal findings HPV MRNA E6/E7 REFLEX TO HPV 16, 18/45 Routine 01/10/2022 9:20 AM EDT THINPREP IMAGING SYSTEM PAP Routine 01/10/2022 9:20 AM EDT PROPHYLAXIS - ADULT Routine 05/11/2019 1 2:00 AM EST PERIODIC ORAL EVALUATION - ESTABLISHED PATIENT Routine 05/11/2019 12:00 AM EST INTRAORAL - COMPLETE SERIES OF RADIOGRAPHIC IMAGES Routine 08/10/2018 12:00 AM EST from Last 3 Months or Most Recently Relevant to Health Maintenance Results * (ABNORMAL) POCT Urinalysis (06/06/2025 12:48 [...] Media Lot # [id number] Lot# Expiration Date [id number] Urine (Urine, Random) 06/06/2025 12:48 PM EST Zaira Craft DO POINT OF CARE TEST ENTER/NONI T ORDERABLES Final Result * Hepatitis C Antibody with Reflex to HCV RNA,PCR w/Reflex to Genotype, LiPA (09/08/2022 10:44 AM EDT) Hepatitis C Antibody NON-REACT CHANTEL NON-REACT CHANTEL [facility] [place] [employer] Diagnost Index 0.04 <1.00 [facility] [place] [facility] Comment: HCV antibody was non-reactive. There is no laboratory evidence of HCV infection. In most cases, no further action is required. However, if recent HCV exposure is suspected, a test for HCV RNA (test code 03413) is suggested. For additional information, please refer to http://[employer]FIXO/faq/JKL786 (This link is being provided for informational/ educational purposes only.) 09/08/2022 10:4 4 AM EDT 09/08/2022 10:45 AM EDT Narrative [facility] - 09/09/2022 9:14 PM EDT FASTING:YES FASTING: YES us Zaira Craft DO LAB BLOOD ORDERABLES Final R esult [facility] [address], [place] [address] [facility] [place] [facility] [address] [place] [address] * HIV-1/2 Antigen and Antibodies, Fourth Generation, with Reflexes (09/08/2022 10:44 AM EDT) HIV Antigen/Antibody, 4th Generation NON-REAC TIVE NON-REAC TIVE [facility] [place] [facility] Comment: HIV-1 antigen and HIV-1/HIV-2 antibodies were not detected. There is no laboratory evidence of HIV infection. PLEASE NOTE: This information has been disclosed to you from records whose confidentiality may be protected by state law. If your state requires such protection, then the state law prohibits you from making any further disclosure of the information without the specific written consent of the person to whom it pertains, or as otherwise permitted by law. A general authorization for the release of medical or other information is NOT sufficient for this purpose. For additional information please refer to http://[employer]Sweepery/faq/OUY224 (This link is being provided for informational/ educational purposes only.) The performance of this assay has not been clinically validated in patients less than 2 years old. Blood Venous blood specimen / Unknown 09/08/2022 10:44 AM EDT 09/08/2022 10:45 AM EDT Narrative [facility] - 09/09/2022 9:14 PM EDT FASTING:YES FASTING: YES us Zaira Craft DO LAB BLOOD ORDERABLES Final R esult Performing Organization Address City/[facility] Co de Phone Number [facility] [address], [place] [address] [facility] [address] [place] [address] * THINPREP TIS PAP (01/10/2022 9:20 AM EDT) Clinical Information: None given [facility] COMMENT SEE COMMENT [facility] Comment: EXPLANATORY NOTE: The Pap is a screening test for cervical cancer. It is not a diagnostic test and is subject to false negative and false positive results. It is most reliable when a satisfactory sample, regularly obtained, is submitted with relevant clinical findings and history, and when the Pap result is evaluated along with historic and current clinical information. Comment: This Pap test has been evaluated with computer assisted technology. [facility] Nurse Intern : SEE COMMENT [facility] Comment: ALS, CT(ASCP) CT screening location: [place] [address] Interpretation/R esult: Negative for intraepithelial lesion or malignancy. [facility] LMP: 12/24/2021 [facility] Prev. BX: NONE GIVEN [facility] Prev. PAP: NONE GIVEN [facility] Review Nurse Intern : SEE COMMENT [facility] Comment: SL, CT(ASCP) CT screening location: [place] [address] SOURCE: Cervix [facility] Statement Of Adequacy: SEE COMMENT [facility] Comment: Satisfactory for evaluation. Endocervical/transformation zone component present. 01/10/2022 9:20 AM EDT Zaira Craft DO LAB PATHOLOGY ORDERABLES Fin al Result Performing Organization Address City/[facility] Co de Phone Number [facility] [address] * HPV mRNA E6/E7 REFLEX TO HPV 16, 18/45 (01/10/2022 9:20 AM EDT) HPV nRNA E6/E7 Not Detected Not Detected [facility] Comment: Methodology: Wash Barrel Leader-Mediated Amplification This assay detects E6/E7 viral messenger RNA (mRNA) from 14 high-risk HPV types (16,18,31,33,35,39,45,51,52,56,58,59,66,68). Cervical sources are required for HPV testing. If a vaginal source from a patient who has had a total hysterectomy with removal of cervix was submitted, please contact the testing laboratory for alternative testing options. For additional information, please refer to http://education.Sweepery/faq/ZJG715s0 (This link if provided for information/ educational purposes only.) 01/10/2022 9:20 AM EDT Zaira Craft DO LAB CYTOLOGY ORDERABLES Antonia l Result Performing Organization Address [facility] Co de Phone Number [facility] [address] from Last 3 Months or Most Recently Relevant to Health Maintenance Insurance [facility] 2 [place] ADULT DENTAL - HSN FULL (MEDICAID) * Guarantor: Dariana Georges Account Type Relation to Patient Date of Phone Billing Address Personal/Family Self [place], [place] Care Teams Garden Center Manager Relationship Specialty Start Date End Date Zaira Craft DO [address] [place] [phone] PCP - General Family Medicine 06/29/18
--- OUTSIDE RECORDS SUMMARY | 2025-06-06 23:04 | XMS_ITS | Encounter Summary ---
Author Organization [facility] Address 75 [facility] 7t [place] [address] Care Team Providers Care Disaster Response Director Name Role Phone RominaZaira kendall Primary Care Provider + [phone] Encounter Details Date Type Department Care Team (Latest Contact Info) Description 06/02/2025 Travel Social History Tobacco Use Types Packs/Day [...] housing situation today? I have nuvia huitron 06/02/[address] you li ve. Do you have problems with any of the following? None of the above 06/02/2023 Food Insecurity Answer Date Recorded Within the past 12 months, y ou worried that your food would run out before you got money to buy more: Never True 06/02/2023 Within the past 12 months,th e food you bought just didn't last and you didn't have enough money to get more: Never True 10/2022 Transportation Answer Date Recorded In the past 12 months, has l ack of transportation kept you from medical appts, meetings, work or from getting things needed for daily living? Yes, it has kept me from medical appointments or getting medications. 06/02/2023 Utilities Answer Date Recorded In the past 12 months, has t he electric, gas, oil or water company threatened to shut off services in your home? No 06/02/2023 Depression Answer Date Recorded Patient Health Questionnaire-2 Score 0 06/02/2023 Comments Unknown Sex and Gender Information Value [...] Time PHQ-9 Depression Total Score: 0 06/02/20 9:19 AM EST documented as of this encounter Care Teams Disaster Response Director Relationship Specialty Start Date End Date Zaira Craft DO [address] [place] [address] PCP - General Family Medicine 06/29/18 documented as of this encounter
--- OUTSIDE RECORDS SUMMARY | 2025-06-06 23:04 | XMS_ITS | Encounter Summary ---
Author Organization [facility] Address [address] [place] [address] 7 [place] [address] Care Team Providers Care Labor Custodian Name Role Phone Zaira Craft DO Primary Care Provider + [phone] Encounter Details Date Type Department Care Team (Latest Contact Info) Description 10/20/2018 Abstract [facility] CONVERSIONS Dental, Provider, DDS Social History Tobacco Use Types Packs/Day Years [...] on filedocumented in this encounter Care Teams Labor Custodian Relationship Specialty Start Date End Date Zaira Craft DO [address] [place] [address] PCP - General Family Medicine 06/29/18 documented as of this encounter
--- OUTSIDE RECORDS SUMMARY | 2025-06-06 23:04 | XMS_ITS | Encounter Summary ---
Author Organization [facility] Address [address] [facility] [address] [place] [phone] Phone Care Team Providers Care Diet Therapist Name Role Phone Zaira Craft DO Primary Care Provider + [phone] Encounter Details Date Type Department Care Team (Late st Contact Info) Description 05/30/2025 Procedure [facility], Ct Scan - [address] [address] Social History Tobacco Use Types Packs/Day Years [...] Orientation Straight 05/30/2025 1: 54 AM EST documented as of this encounter Functional Status * Calculated C-SSRS Risk Score (Lifetime/Recent) Answer Date of Assessment Author No Risk Indicated 05/30/2025 12:41 AM Marielena Guajardo RN * Ellis Suicide Severity Rating Scale (Screener/Recent Self-Report) Question Answer Date of Assessment Author 1. Wish to be (Past 1 Month) No 05/30/2025 12:41 AM Marielena Rao RN 2. Non-Specific Active Suicidal Thoughts (Past 1 Month) No 05/30/2025 12:41 AM Marielena Rao RN 6. Suicidal Behavior (Lifetime) No 05/30/2025 12:41 AM Marielena Rao RN documented as of this encounter Plan of Treatment Not on file documented as of this encounter Visit Diagnoses Not on filedocumented in this encounter Care Teams Diet Therapist Relationship Specialty Start Date End Date Zaira Craft DO [address] [place] [address] PCP - General 10/18/23 documented as of this encounter Additional Source Comments The information contained in this document represents components of the legal health record. It is not the complete legal health record.[facility]
== END 2025-06-06 17:26 ==
LOC: HO.LNP 17:25
PROVIDERS: Visit Provider Family Medicine
DX: R39.9 Unspecified symptoms and signs involving the genitourinary system (principal)
CPT/HCPCS: 87086

== ENCOUNTER 2025-06-12 09:10 | Outpatient (REF) | payer OTHER, SELFPAY ==
[2025-06-12 11:23] LABS: Hematocrit 41.4 % (37.0-47.0); Hemoglobin 13.2 g/dl (12.0-16.0); Mean Corpuscular HGB Conc 31.9 g/dl (31.0-35.0); Mean Corpuscular Hemoglobin 27.2 pg (27.0-33.0); Mean Corpuscular Volume 85.2 fL (80.0-98.0); NRBC Abs Auto 0.000 X10*3/uL (0.0-0.012); NRBC Pct Auto 0.0 /100WBC (0.0-0.2); Platelet Count 296 X10*3/uL (160-400); Red Blood Count 4.86 X10*6/uL (4.20-5.50); White Blood Count 8.7 X10*3/uL (4.8-10.8)
[2025-06-12 11:52] LABS: Alanine Aminotransferase 22 U/L (0-31); Albumin Level 4.4 g/dL (3.5-5.0); Alkaline Phosphatase 77 U/L (39-117); Anion Gap 8 (12-20); Aspartate Amino Transferase 23 U/L (5-31); Blood Urea Nitrogen 11 mg/dL (9-16); Calcium 8.9 mg/dL (8.4-10.2); Carbon Dioxide 26 mmol/L (22-29); Chloride 109 mmol/L (96-108); Cholesterol 164 mg/dL (<200); Estimated Glomerular Filt Rate > 60; Free T4 (Free Thyroxine) 0.93 ng/dL (0.71-1.85); HDL Cholesterol 47 mg/dL (>40); Lipase 18 U/L (8-78); Potassium 4.0 mmol/L (3.3-5.1); Sodium 139 mmol/L (135-145); Thyroid Stimulating Hormone 1.19 uIU/mL (0.32-4.0); Total Protein 7.6 g/dL (6.5-8.0); Triglycerides 104 mg/dL (<150)
[2025-06-12 12:52] LABS: HBS Num1 1.46 mIU/mL (0-7.99); HBsAGNum1 0.51 S/CO (0.00-0.99); HIV Num 1 0.07 S/CO (0.00-0.99); Hepatitis B Surface Antigen Negative (Negative); ~HepC Num1 0.07 S/CO (0.00-0.79); ~Hepatitis B Surface Antibody NONREACTIVE (Nonreactive); ~Hepatitis C Antibody Nonreactive (Nonreactive)
== END 2025-06-12 09:11 | disposition home or self-care (01) ==
LOC: HO.HHCL 09:10
PROVIDERS: PCP Family Medicine; Visit Provider Family Medicine
DX: Z11.4 Encounter for screening for human immunodeficiency virus [HIV] (principal); Z11.59 Encounter for screening for other viral diseases; Z11.3 Encounter for screening for infections with a predominantly sexual mode of transmission; K85.90 Acute pancreatitis without necrosis or infection, unspecified; N39.0 Urinary tract infection, site not specified
CPT/HCPCS: 36415; 80048; 80061; 80076; 82306; 83036; 83690; 84439; 84443; 85027; 86592; 86706; 86803; 87086; 87340; 87389

== ENCOUNTER 2025-06-15 09:22 | Outpatient (REF) | payer OTHER, SELFPAY ==
[2025-06-15 12:43] LABS: CT PCR Urine NOT DETECTED (Not Detect.); NG PCR Urine NOT DETECTED (Not Detect.)
== END 2025-06-15 09:23 | disposition home or self-care (01) ==
LOC: HO.HHCL 09:22
PROVIDERS: PCP Family Medicine; Visit Provider Family Medicine
DX: K85.90 Acute pancreatitis without necrosis or infection, unspecified (principal); R39.9 Unspecified symptoms and signs involving the genitourinary system; Z20.2 Contact with and (suspected) exposure to infections with a predominantly sexual mode of transmission; Z30.41 Encounter for surveillance of contraceptive pills
CPT/HCPCS: 87491; 87591